=== PATIENT | female | born 1945 | race Caucasian/White ===

== ENCOUNTER 2017-07-30 12:30 | Inpatient (IN) | payer OTHER ==
[~2017-07-30] VITALS: Ht 157.5 cm; Wt 81.6 kg
[2017-07-30] MEDS ORDERED: ASA325 MG PO (15:28)
[2017-07-30] MEDS ORDERED: ZESTRIL10 M1 PO (15:28)
[2017-07-30] MEDS ORDERED: NEXIUM20 M1 PO (15:28)
[2017-08-08] MEDS ORDERED: CLONAZEPAM1 MG PO (07:53)
[2017-08-08] MEDS ORDERED: PERCOCET 5-3251 EACH PO (07:53)
[2017-08-08] MEDS ORDERED: DOCUSATE SODIU100 MG PO (07:53)
== END 2017-08-08 13:50 | disposition home or self-care (01) | DRG 455 ==
LOC: O/R 08-07 04:48 → SURH 08-07 07:00 → SURG 08-07 10:03 → SURH 08-07 12:30 → SURG 08-08 13:50
PROVIDERS: Orthopaedic Surgery Orthopaedic Surgery of the Spine
PROC: 0RG20A0 Fusion of 2 or more Cervical Vertebral Joints with Interbody Fusion Device, Anterior Approach, Anterior Column, Open Approach (ICD-10-PCS; 2017-08-07)
PROC: 0RT30ZZ Resection of Cervical Vertebral Disc, Open Approach (ICD-10-PCS; 2017-08-07)
PROC: 07DS3ZZ Extraction of Vertebral Bone Marrow, Percutaneous Approach (ICD-10-PCS; 2017-08-07)
PROC: 0RG2071 Fusion of 2 or more Cervical Vertebral Joints with Autologous Tissue Substitute, Posterior Approach, Posterior Column, Open Approach (ICD-10-PCS; principal; 2017-08-07 07:00)
DX: M47.22 Other spondylosis with radiculopathy, cervical region (principal); M50.121 Cervical disc disorder at C4-C5 level with radiculopathy; I10 Essential (primary) hypertension